=== PATIENT | male | born 1955 | race Caucasian/White ===

== ENCOUNTER → 2021-03-22 | Outpatient (REF) | payer MEDICARE ==
[2021-03-22 10:44] LABS: HEMATOCRIT 41.7 % (42.0-52.0); HEMOGLOBIN 13.8 g/dl (13.5-17.5); MEAN CORPUSCULAR HEMOGLOBIN 29.9 pg (27.0-33.0); MEAN CORPUSCULAR HGB CONC 33.1 g/dl (32.0-36.5); MEAN CORPUSCULAR VOLUME 90.3 fl (80.0-96.0); PLATELET COUNT, AUTOMATED 274 10^3/uL (150-450); RED BLOOD COUNT 4.62 10^6/uL (4.30-6.10); WHITE BLOOD COUNT 7.3 10^3/uL (4.0-10.0)
[2021-03-22 11:21] LABS: ERYTHROCYTE SEDIMENTATION RATE 24 mm/hr (0-20)
[2021-03-22 11:27] LABS: C REACTIVE PROTEIN QUANTITATIV < 0.30 MG/DL (0.00-0.30); CREATININE FOR GFR 0.74 MG/DL (0.70-1.30); GLOMERULAR FILTRATION RATE > 60.0 (>49)
== END ==
LOC: M SHH 09:25
PROVIDERS: ATTEND Internal Medicine Infectious Disease
DX: L02.511 Cutaneous abscess of right hand (principal); L03.011 Cellulitis of right finger; M86.141 Other acute osteomyelitis, right hand; B95.62 Methicillin resistant Staphylococcus aureus infection as the cause of diseases classified elsewhere; Z45.2 Encounter for adjustment and management of vascular access device; I10 Essential (primary) hypertension; E78.5 Hyperlipidemia, unspecified; Z87.891 Personal history of nicotine dependence

== ENCOUNTER → 2021-04-02 | Outpatient (REF) | payer MEDICARE | LOC: M LAB REF 07:30 | DX: M86.141 Other acute osteomyelitis, right hand (principal) ==

== ENCOUNTER → 2021-04-06 | Outpatient (REF) | payer MEDICARE ==
[2021-04-06 11:33] LABS: HEMATOCRIT 42.9 % (42.0-52.0); HEMOGLOBIN 14.1 g/dl (13.5-17.5); MEAN CORPUSCULAR HEMOGLOBIN 29.9 pg (27.0-33.0); MEAN CORPUSCULAR HGB CONC 32.9 g/dl (32.0-36.5); MEAN CORPUSCULAR VOLUME 90.9 fl (80.0-96.0); PLATELET COUNT, AUTOMATED 176 10^3/uL (150-450); RED BLOOD COUNT 4.72 10^6/uL (4.30-6.10)
[2021-04-06 12:04] LABS: C REACTIVE PROTEIN QUANTITATIV < 0.30 MG/DL (0.00-0.30); CREATININE FOR GFR 0.77 MG/DL (0.70-1.30); GLOMERULAR FILTRATION RATE > 60.0 (>49); VANCOMYCIN LEVEL TROUGH 10.8 UG/ML (10.0-20.0)
[2021-04-06 12:13] LABS: ERYTHROCYTE SEDIMENTATION RATE 14 mm/hr (0-20)
== END ==
LOC: M SHH 10:43
PROVIDERS: ATTEND Internal Medicine Infectious Disease
DX: M86.141 Other acute osteomyelitis, right hand (principal)

== ENCOUNTER → 2021-04-18 | Outpatient (REF) | payer MEDICARE ==
[2021-04-18 12:07] LABS: HEMATOCRIT 43.4 % (42.0-52.0); HEMOGLOBIN 15.3 g/dl (13.5-17.5); MEAN CORPUSCULAR HEMOGLOBIN 31.5 pg (27.0-33.0); MEAN CORPUSCULAR HGB CONC 35.3 g/dl (32.0-36.5); MEAN CORPUSCULAR VOLUME 89.5 fl (80.0-96.0); PLATELET COUNT, AUTOMATED 179 10^3/uL (150-450); RED BLOOD COUNT 4.85 10^6/uL (4.30-6.10); WHITE BLOOD COUNT 5.6 10^3/uL (4.0-10.0)
[2021-04-18 12:30] LABS: C REACTIVE PROTEIN QUANTITATIV < 0.30 MG/DL (0.00-0.30); CREATININE FOR GFR 0.81 MG/DL (0.70-1.30); GLOMERULAR FILTRATION RATE > 60.0 (>49)
[2021-04-18 12:45] LABS: ERYTHROCYTE SEDIMENTATION RATE 9 mm/hr (0-20)
== END ==
LOC: M LAB REF 10:18
PROVIDERS: ATTEND Internal Medicine Infectious Disease
DX: M86.141 Other acute osteomyelitis, right hand (principal)